=== PATIENT | female | born 1970 | race Caucasian/White ===

== ENCOUNTER 2018-02-10 11:41 | Emergency (ER) | payer BC ==
[~2018-02-10] VITALS: Ht 154.9 cm; Wt 98.0 kg
[2018-02-10] MEDS ORDERED: HYDRALAZINE HCL 20 MG/ML VIAL IV ONE (12:00)
[2018-02-10 12:58] LABS: HEMATOCRIT 46.8 % (34.2-44.1); HEMOGLOBIN 15.6 g/dL (12.0-16.0); MEAN CORPUSCULAR HEMOGLOBIN 27.8 pg (28-32); MEAN CORPUSCULAR HGB CONC 33.3 g/dL (31-35); MEAN CORPUSCULAR VOLUME 83.3 fL (81-99); PLATELET COUNT 227 x10e3/uL (140-360); RED BLOOD COUNT 5.62 x10e6/uL (3.6-5.1); RED CELL DISTRIBUTION WIDTH 13.2 % (11.7-14.4)
[2018-02-10 13:23] LABS: ALANINE AMINOTRANSFERASE 17 IU/L (0-55); ALBUMIN 4.2 g/dL (3.5-5.0); ALBUMIN/GLOBULIN RATIO 1.2 (0.8-2.0); ALKALINE PHOSPHATASE 61 IU/L (40-150); ANION GAP 14.6 mmol/L (8-16); BLOOD UREA NITROGEN 20 mg/dL (7-26); BUN/CREATININE RATIO 22 (6-25); CARBON DIOXIDE 26 mmol/L (22-29); CHLORIDE 100 mmol/L (98-107); CREATININE, SERUM 0.93 mg/dL (0.57-1.11); EST GLOMERULAR FILTRATION RATE > 60 ML/MIN (60-); GLUCOSE 82 mg/dL (74-118); POTASSIUM 3.6 mmol/L (3.5-5.1); SODIUM 137 mmol/L (136-145)
--- NOTE | 2018-02-10 13:48 | Diagnostic Imaging Report ---
EXAMINATION: CHEST SINGLE (PORTABLE) INDICATION: Hypertension COMPARISON: None FINDINGS: TUBES and LINES: None. LUNGS: Lungs are well inflated. Lungs are clear. There is no evidence of pneumonia or pulmonary edema. PLEURA: No pleural effusion or pneumothorax. HEART AND MEDIASTINUM: The cardiomediastinal silhouette is unremarkable. BONES AND SOFT TISSUES: No acute osseous lesion. Soft tissues are unremarkable. UPPER ABDOMEN: No free air under the diaphragm. IMPRESSION: No acute thoracic abnormality. Signed by: Dr. Torrey Flores M.D. on 02/10/2018 1:43 PM
[2018-02-10 14:33] LABS: BILIRUBIN,URINE NEGATIVE (NEGATIVE); CLARITY,URINE SL CLOUDY (CLEAR); COLOR,URINE YELLOW (YELLOW); KETONES,URINE NEGATIVE (NEGATIVE); LEUKOCYTE ESTERASE ,URINE TRACE (NEGATIVE); NITRITE,URINE NEGATIVE (NEGATIVE); PROTEIN,URINE DIPSTICK NEGATIVE (NEGATIVE); URINE UROBILINOGEN 0.2 mg/dL (0.2 - 1)
[2018-02-10 14:42] LABS: BACTERIA,URINE FEW /HPF; EPITHELIAL CELLS,URINE FEW /LPF; RBC,URINE 0-5 /HPF (0-5); WBC,URINE (MAN) 0-5 /HPF (0-5)
[2018-02-10] MEDS ORDERED: SODIUM CHLORIDE 0.9% 1000ML 1,000 ML IV STA (15:08)
[2018-02-10] MEDS ORDERED: SODIUM CHLORIDE 0.9% 1000ML 1,000 ML ONE (15:11)
--- NOTE | 2018-02-10 17:19 | Diagnostic Imaging Report ---
EXAMINATION: Renal Doppler ultrasound. CLINICAL HISTORY :Malignant hypertension, evaluate for renal artery stenosis. COMPARISON: <None available.> TECHNIQUE: Grayscale and color Doppler evaluation of the kidneys and bladder was performed in transverse and longitudinal planes. Doppler interrogation of the main, hilar, segmental and arcuate renal arteries bilaterally as well as evaluation of the aorta were performed. DISCUSSION: RIGHT KIDNEY: The right kidney measures 10.7 cm in length and shows normal echogenicity. The right renal cortex measures 1.2 cm. No hydronephrosis, shadowing calculi or solid mass lesions. . Right main renal artery PSV is 81.2, 98.7, 102.0 and 97.3 cm/sec at the ostium, proximal, mid and distal portions, respectively Right segmental artery PSV is 83.9, 64.2 and 42.7 cm/, at the superior, mid and inferior aspects, respectively. Arterial waveforms are normal. The right renal artery PSV/aortic PSV ratio is 0.9. LEFT KIDNEY: The left kidney measures 11.5 cm in length and shows normal echogenicity. The left renal cortex measures 1.6 cm. No hydronephrosis, shadowing calculi or solid mass lesions. Left main renal artery PSV is 99.0, 59.6, 81.2 and 45.3 cm/sec, at the ostium, proximal, mid and distal aspects, respectively. Left segmental artery PSV is 51.3, 41.3 and 41.4cm/sec, at the superior, mid and inferior aspects, respectively Arterial waveforms are normal. The left renal artery PSV/aortic PSV ratio is 0.8. Abdominal aortic PSV is 77.8, 118 and 77.4 cm/sec, at the proximal, celiac/SMA, and distal portions, respectively. BLADDER: No focal lesions. IMPRESSION: 1. Normal bilateral renal size and echogenicity. No hydronephrosis stones or solid lesions. 2. No sonographic evidence of renal artery stenosis. Signed by: Dr. Casey Goodson M.D. on 02/10/2018 5:16 PM
[2018-02-10] MEDS ORDERED: ACETAMINOPHEN 325 MG TAB ONE (17:33)
[2018-02-10 19:04] VITALS: BP 144/85
== END 2018-02-10 19:06 | disposition home or self-care (01) ==
LOC: ER 11:41
DX: I10 Essential (primary) hypertension (principal); N39.0 Urinary tract infection, site not specified
CPT/HCPCS: 36415; 71045; 80053; 81001; 84244; 85007; 85027; 93976; 99284; J0360; J7030

== ENCOUNTER → 2018-02-17 | Outpatient (CLI) | payer BC | LOC: CARD 08:51 | PROVIDERS: ATTEND Internal Medicine | DX: I10 Essential (primary) hypertension (principal) | CPT/HCPCS: 93306 ==

== ENCOUNTER → 2018-02-17 | Outpatient (CLI) | payer BC ==
[2018-02-17 09:09] LABS: THYROID STIMULATING HORMONE 1.976 uIU/mL (0.350-4.940)
== END ==
LOC: LAB 02-16 13:25
PROVIDERS: ATTEND Internal Medicine
DX: E07.9 Disorder of thyroid, unspecified (principal); E66.01 Morbid (severe) obesity due to excess calories; E78.00 Pure hypercholesterolemia, unspecified
CPT/HCPCS: 36415; 80061; 84443

== ENCOUNTER → 2018-07-21 | Outpatient (CLI) | payer BC ==
[~2018-07-21] MED LIST: REGADENOSON 0.4 MG/5 ML SYR IV ONE
== END ==
LOC: NM 06:45
DX: R94.31 Abnormal electrocardiogram [ECG] [EKG] (principal)
CPT/HCPCS: 78452; 93017; 93306; A9502; J2785

== ENCOUNTER → 2018-08-25 | Outpatient (CLI) | payer BC ==
[2018-08-25 07:10] LABS: COLOR,URINE YELLOW (YELLOW)
[2018-08-25 07:11] LABS: BILIRUBIN,URINE NEGATIVE (NEGATIVE); CLARITY,URINE HAZY (CLEAR); KETONES,URINE NEGATIVE (NEGATIVE); LEUKOCYTE ESTERASE ,URINE NEGATIVE (NEGATIVE); NITRITE,URINE NEGATIVE (NEGATIVE); PROTEIN,URINE DIPSTICK NEGATIVE (NEGATIVE); URINE UROBILINOGEN 0.2 mg/dL (0.2 - 1)
[2018-08-25 07:23] LABS: ALBUMIN 3.9 g/dL (3.5-5.0); ANION GAP 11.2 mmol/L (8-16); CALCIUM 10.3 mg/dL (8.4-10.2); CHOL/HDL RATIO 2.6 (3.0-3.6); CREATININE, SERUM 1.01 mg/dL (0.57-1.11); POTASSIUM 3.2 mmol/L (3.5-5.1)
[2018-08-25 07:46] LABS: FREE T4 (FREE THYROXINE) 0.89 ng/dL (0.9-1.8); THYROID STIMULATING HORMONE 2.455 uIU/mL (0.350-4.940)
[2018-08-25 09:17] LABS: BASOPHILS % 0.3 % (0.0-1.0); EOSINOPHILS # (AUTO) 0.1 (0.0-0.4); EOSINOPHILS % 1.4 % (0.0-6.0); HEMATOCRIT 43.7 % (34.2-44.1); HEMOGLOBIN 14.9 g/dL (12.0-16.0); LYMPHOCYTES # (AUTO) 2.8 (1.0-3.2); LYMPHOCYTES % 31.6 % (18.0-39.1); MEAN CORPUSCULAR HEMOGLOBIN 28.6 pg (28-32); MEAN CORPUSCULAR HGB CONC 34.1 g/dL (31-35); MEAN CORPUSCULAR VOLUME 83.9 fL (81-99); MONOCYTES # (AUTO) 0.8 (0.2-0.8); MONOCYTES % 8.8 % (4.4-11.3); NEUTROPHILS # (AUTO) 5.1 (2.1-6.9); NEUTROPHILS % 57.6 % (38.7-80.0); PLATELET COUNT 227 x10e3/uL (140-360); RED BLOOD COUNT 5.21 x10e6/uL (3.6-5.1); RED CELL DISTRIBUTION WIDTH 12.5 % (11.7-14.4)
== END ==
LOC: LAB 08-24 10:21
PROVIDERS: ATTEND Internal Medicine
DX: Z00.00 Encounter for general adult medical examination without abnormal findings (principal); Z13.1 Encounter for screening for diabetes mellitus; I10 Essential (primary) hypertension; E78.5 Hyperlipidemia, unspecified
CPT/HCPCS: 36415; 80053; 80061; 81003; 82652; 83036; 84439; 84443; 85025

== ENCOUNTER 2019-07-10 08:54 | Emergency (ER) | payer BC ==
[~2019-07-10] VITALS: Ht 154.9 cm; Wt 98.0 kg
--- OUTSIDE RECORDS SUMMARY | 2019-07-10 08:56 | XMS REPORT ---
Author Author [facility] Address Unknown Phone Unavailable Care Team Providers Care Head Banquet Waitress Name Role Phone Apolinar BESS Unavailable Unavailable Problems This patient has no known problems. Allergies, Adverse Reactions, Alerts This patient has no known allergies or adverse reactions. Medications This patient has no known medications. Results Test Description Test Time Test Comments Text Results Atomic Results Result Comments US RENAL/LIVER DOPPLER LTD 2018-02-10 17:08:00 [place] [address] Patient Name: ROGER LAW MR #: [id number] : 1970 Age/Sex: 47/F Req #: [id number] Adm Physician: Ordered by: VIANEY BESS MD Report #: [id number] Location: ER Room/Bed: Procedure: [id number] US/US RENAL/LIVER DOPPLER LTD Exam Date: Exam Time: REPORT STATUS: Signed EXAMINATION: Renal Doppler ultrasound. CLINICAL HISTORY :Malignant hypertension, evaluate for renal artery stenosis. COMPARISON: <None available.> TECHNIQUE: Grayscale and color Doppler evaluation of the kidneys and bladder was performed in transverse and longitudinal planes. Doppler interrogation of the main, hilar, segmental and arcuate renal arteries bilaterally as well as evaluation of the aorta were performed. DISCUSSION : RIGHT KIDNEY: The right kidney measures 10.7 cm in length and shows normal echogenicity. The right renal cortex measures 1.2 cm. No hydronephrosis, shadowing calculi or solid mass lesions. . Right main renal artery PSV is 81.2, 98.7, 102.0 and 97.3 cm/sec at the ostium, proximal, mid and distal portions, respectively Right segmental artery PSV is 83.9, 64.2 and 42.7 cm/, at the superior, mid and inferior aspects, respectively. Arterial waveforms are normal. The right renal artery PSV/aortic PSV ratio is 0.9. LEFT KIDNEY: The left kidney measures 11.5 cm in length and shows normal echogenicity. The left renal cortex measures 1.6 cm. No hydronephrosis, shadowing calculi or solid mass lesions. Left main renal artery PSV is 99.0, 59.6, 81.2 and 45.3 cm/sec, at the ostium, proximal, mid and distal aspects, respectively. Left segmental artery PSV is 51.3, 41.3 and 41.4cm/sec, at the superior, mid and inferior aspects, respectively Arterial waveforms are normal. The left renal artery PSV/aortic PSV ratio is 0.8. Abdominal aortic PSV is 77.8, 118 and 77.4 cm/sec, at the proximal, celiac/SMA, and distal portions, respectively. BLADDER: No focal lesions. IMPRESSION: 1. Normal bilateral renal size and echogenicity. No hydronephrosis stones or solid lesions. 2. No sonographic evidence of renal artery stenosis. Signed by: Dr. Jenni Goodson M.D. on 02/10/2018 5:16 PM Dictated By: JENNI GOODSON MD 15 Transcribed By: CAMELIA on 02/10/181715 COPY TO: VIANEY BESS MD CHEST SINGLE (PORTABLE) 2018-02-10 13:43:00 [place] [address] Patient Name: ROGER LAW MR #: [id number] : 1970 Age/Sex: 47/F Req #: [id number] Adm Physician: Ordered by: VIANEY BESS MD Report #: [id number] Location: Room/Bed: Procedure: [id number] DX/CHEST SINGLE (PORTABLE) Exam Date: 02/10/18 Exam Time: 1220 REPORT STATUS: Signed EXAMINATION: CHEST SINGLE (PORTABLE) BRUNO CATION: Hypertension COMPARISON: None FINDINGS: TUBES and LINES: None. LUNGS: Lungs are well inflated. Lungs are clear. There is no evidence of pneumonia or pulmonary edema. PLEURA: No pleural effusion or pneumothorax. HEART AND MEDIASTINUM: The cardiomediastinal silhouette is unremarkable. BONES AND SOFT TISSUES: No acute osseous lesion. Soft tissues are unremarkable. UPPER ABDOMEN: No free air under the diaphragm. IMPRESSION: No acute thoracic abnormality. Signed by: Dr. Torrey Flores M.D. on 02/10/2018 1:43 PM Dictated By: TORREY FLORES MD, MD [id number] Transcribed By: CAMELIA on 02/10/18 1343 COPY TO: VIANEY BESS MD
--- NOTE | 2019-07-10 09:06 | NUR ---
instilled 1 drop of tetracaine to affected eye per Dr. Kulkarni order.
[2019-07-10] MEDS ORDERED: TETRACAINE HCL 0.5% OPTH SOLN 4 ML BTL ONE (09:11)
[2019-07-10] MEDS ORDERED: TETRACAINE HCL 0.5% OPTH SOLN 4 ML BTL OP ONE (09:15)
== END 2019-07-10 09:17 | disposition home or self-care (01) ==
LOC: ER 08:54
DX: H57.12 Ocular pain, left eye (principal); H00.15 Chalazion left lower eyelid
CPT/HCPCS: 99282

== ENCOUNTER → 2019-08-26 | Outpatient (CLI) | payer BC ==
[2019-08-26 10:24] LABS: ANION GAP 13.6 mmol/L (8-16); BLOOD UREA NITROGEN 18 mg/dL (7-26); BUN/CREATININE RATIO 20 (6-25); CALCIUM 10.5 mg/dL (8.4-10.2); CARBON DIOXIDE 29 mmol/L (22-29); CHLORIDE 104 mmol/L (98-107); CREATININE, SERUM 0.88 mg/dL (0.57-1.11); EST GLOMERULAR FILTRATION RATE > 60 ML/MIN (60-); GLUCOSE 85 mg/dL (74-118); POTASSIUM 3.6 mmol/L (3.5-5.1); SODIUM 143 mmol/L (136-145)
== END ==
LOC: LAB 09:50
PROVIDERS: ATTEND Internal Medicine Cardiovascular Disease
DX: I10 Essential (primary) hypertension (principal)
CPT/HCPCS: 36415; 80048

== ENCOUNTER → 2019-11-08 | Outpatient (CLI) | payer BC ==
[2019-11-08 07:28] LABS: BASOPHILS % 0.4 % (0.0-1.0); EOSINOPHILS # (AUTO) 0.1 (0.0-0.4); EOSINOPHILS % 1.5 % (0.0-6.0); HEMATOCRIT 43.9 % (34.2-44.1); HEMOGLOBIN 14.1 g/dL (12.0-16.0); LYMPHOCYTES # (AUTO) 1.7 (1.0-3.2); LYMPHOCYTES % 32.7 % (18.0-39.1); MEAN CORPUSCULAR HEMOGLOBIN 27.6 pg (28-32); MEAN CORPUSCULAR HGB CONC 32.1 g/dL (31-35); MEAN CORPUSCULAR VOLUME 86.1 fL (81-99); MONOCYTES # (AUTO) 0.5 (0.2-0.8); MONOCYTES % 8.9 % (4.4-11.3); NEUTROPHILS # (AUTO) 2.9 (2.1-6.9); NEUTROPHILS % 56.3 % (38.7-80.0); PLATELET COUNT 195 x10e3/uL (140-360)
[2019-11-08 07:50] LABS: ALANINE AMINOTRANSFERASE 17 IU/L (0-55); ALBUMIN 3.8 g/dL (3.5-5.0); ALBUMIN/GLOBULIN RATIO 1.1 (0.8-2.0); ALKALINE PHOSPHATASE 54 IU/L (40-150); ANION GAP 15.2 mmol/L (8-16); BLOOD UREA NITROGEN 15 mg/dL (7-26); BUN/CREATININE RATIO 17 (6-25); CALCIUM 9.4 mg/dL (8.4-10.2); CARBON DIOXIDE 27 mmol/L (22-29); CHLORIDE 105 mmol/L (98-107); CHOL/HDL RATIO 2.6 (3.0-3.6); CHOLESTEROL 129 MD/DL (0-199); CREATININE, SERUM 0.86 mg/dL (0.57-1.11); EST GLOMERULAR FILTRATION RATE > 60 ML/MIN (60-); GLUCOSE 84 mg/dL (74-118); HDL CHOLESTEROL 50 MG/DL (40-60); LDL CHOLESTEROL 65 MG/DL (60-130); POTASSIUM 4.2 mmol/L (3.5-5.1); SODIUM 143 mmol/L (136-145); TRIGLYCERIDES 70 MG/DL (0-149)
[2019-11-08 07:59] LABS: BILIRUBIN,URINE NEGATIVE (NEGATIVE); CLARITY,URINE CLEAR (CLEAR); COLOR,URINE YELLOW (YELLOW); KETONES,URINE NEGATIVE (NEGATIVE); LEUKOCYTE ESTERASE ,URINE NEGATIVE (NEGATIVE); NITRITE,URINE NEGATIVE (NEGATIVE); PROTEIN,URINE DIPSTICK NEGATIVE (NEGATIVE); URINE UROBILINOGEN 0.2 mg/dL (0.2 - 1)
[2019-11-08 08:09] LABS: THYROID STIMULATING HORMONE 1.823 uIU/mL (0.350-4.940)
== END ==
LOC: LAB 06:59
PROVIDERS: ATTEND Internal Medicine
DX: Z00.00 Encounter for general adult medical examination without abnormal findings (principal); E78.5 Hyperlipidemia, unspecified; M89.9 Disorder of bone, unspecified; I10 Essential (primary) hypertension
CPT/HCPCS: 36415; 80053; 80061; 81003; 82044; 82306; 82570; 83036; 84443; 85025

== ENCOUNTER → 2020-01-03 | Outpatient (CLI) | payer BC ==
--- NOTE | 2020-01-03 09:19 | Diagnostic Imaging Report ---
EXAMINATION: FINGER LEFT INDICATION: Left finger pain COMPARISON: None FINDINGS: No acute fracture or dislocation. Alignment is anatomic. No substantial degenerative change. Soft tissues appear unremarkable. \ IMPRESSION: No acute osseous injury. Signed by: Da Dudley MD on 01/03/2020 9:15 AM
== END ==
LOC: RAD 08:15
PROVIDERS: ATTEND Internal Medicine
DX: M79.645 Pain in left finger(s) (principal)

== ENCOUNTER 2020-02-18 11:38 | Emergency (ER) | payer BC ==
[~2020-02-18] VITALS: Ht 154.9 cm; Wt 98.0 kg
== END 2020-02-18 12:18 | disposition home or self-care (01) ==
LOC: ER 11:50
DX: Z20.828 Contact with and (suspected) exposure to other viral communicable diseases (principal)
CPT/HCPCS: 99282; U0002

== ENCOUNTER → 2020-04-03 | Outpatient (CLI) | payer OTHER ==
[~2020-04-03] MED LIST changes: +COVID-19 VACC, MRNA(MODERNA)/PF 100 MCG/0.5 ML VIAL IM ONE; -REGADENOSON 0.4 MG/5 ML SYR IV ONE
== END ==
LOC: VACCPMC 10:50
DX: Z23 Encounter for immunization (principal); Z20.828 Contact with and (suspected) exposure to other viral communicable diseases

== ENCOUNTER → 2020-05-08 | Outpatient (CLI) | payer OTHER | LOC: VACCPMC 08:49 | DX: Z23 Encounter for immunization (principal); Z20.822 Contact with and (suspected) exposure to COVID-19 ==

== ENCOUNTER → 2020-11-30 | Outpatient (CLI) | payer OTHER | LOC: MAMMO 07:47 | PROVIDERS: ATTEND Internal Medicine | DX: N63.20 Unspecified lump in the left breast, unspecified quadrant (principal); N63.10 Unspecified lump in the right breast, unspecified quadrant | CPT/HCPCS: 77066 ==

== ENCOUNTER → 2020-12-14 | Outpatient (CLI) | payer OTHER | LOC: US 07:09 | PROVIDERS: ATTEND Internal Medicine | DX: N63.20 Unspecified lump in the left breast, unspecified quadrant (principal) | CPT/HCPCS: 88305 ==

== ENCOUNTER → 2020-12-30 | Outpatient (CLI) | payer OTHER ==
[2020-12-30 07:05] LABS: BASOPHILS % 0.3 % (0.0-1.0); EOSINOPHILS # (AUTO) 0.1 (0.0-0.4); HEMATOCRIT 43.1 % (34.2-44.1); LYMPHOCYTES % 27.7 % (18.0-39.1); MEAN CORPUSCULAR HEMOGLOBIN 28.5 pg (28-32); MEAN CORPUSCULAR HGB CONC 32.5 g/dL (31-35); MEAN CORPUSCULAR VOLUME 87.6 fL (81-99); MONOCYTES # (AUTO) 0.7 (0.2-0.8); MONOCYTES % 10.5 % (4.4-11.3); NEUTROPHILS # (AUTO) 4.3 (2.1-6.9); NEUTROPHILS % 60.2 % (38.7-80.0); PLATELET COUNT 245 x10e3/uL (140-360); RED BLOOD COUNT 4.92 x10e6/uL (3.6-5.1); RED CELL DISTRIBUTION WIDTH 13.1 % (11.7-14.4)
[2020-12-30 07:26] LABS: ALBUMIN 4.3 g/dL (3.5-5.0); ALBUMIN/GLOBULIN RATIO 1.2 (0.8-2.0); ANION GAP 11.4 mmol/L (8-16); CALCIUM 9.3 mg/dL (8.4-10.2); CREATININE, SERUM 0.82 mg/dL (0.57-1.11); POTASSIUM 3.4 mmol/L (3.5-5.1)
== END ==
LOC: LAB 12-29 15:06
PROVIDERS: ATTEND Internal Medicine Hematology & Oncology
DX: C50.219 Malignant neoplasm of upper-inner quadrant of unspecified female breast (principal); I10 Essential (primary) hypertension; E66.9 Obesity, unspecified
CPT/HCPCS: 36415; 80053; 85025

== ENCOUNTER → 2021-02-02 | Day surgery (SDC) | payer OTHER ==
[2021-01-31 13:30] LABS: BASOPHILS % 0.3 % (0.0-1.0); EOSINOPHILS # (AUTO) 0.1 (0.0-0.4); EOSINOPHILS % 0.8 % (0.0-6.0); HEMATOCRIT 42.1 % (34.2-44.1); HEMOGLOBIN 13.9 g/dL (12.0-16.0); LYMPHOCYTES % 26.7 % (18.0-39.1); MEAN CORPUSCULAR HEMOGLOBIN 28.3 pg (28-32); MEAN CORPUSCULAR VOLUME 85.6 fL (81-99); MONOCYTES # (AUTO) 0.6 (0.2-0.8); MONOCYTES % 7.6 % (4.4-11.3); NEUTROPHILS # (AUTO) 4.7 (2.1-6.9); NEUTROPHILS % 64.3 % (38.7-80.0); PLATELET COUNT 260 x10e3/uL (140-360); RED BLOOD COUNT 4.92 x10e6/uL (3.6-5.1); RED CELL DISTRIBUTION WIDTH 12.9 % (11.7-14.4)
[2021-01-31 13:54] LABS: ALBUMIN 4.3 g/dL (3.5-5.0); ALBUMIN/GLOBULIN RATIO 1.1 (0.8-2.0); ANION GAP 13.1 mmol/L (8-16); CALCIUM 9.3 mg/dL (8.4-10.2); CREATININE, SERUM 0.89 mg/dL (0.57-1.11); POTASSIUM 4.1 mmol/L (3.5-5.1)
[~2021-02-02] MED LIST changes: +ATORVASTATIN CA20 MG PO; -COVID-19 VACC, MRNA(MODERNA)/PF 100 MCG/0.5 ML VIAL IM ONE; +DEXAMETHASONE SOD PHOS INJ 4 MG/ML SDV ONE; +FENTANYL CITRATE/PF 100MCG/2 ML INJ ONE; +GLYCOPYRROLATE INJ 0.2 MG/ML VIAL ONE; +HYDROCODONE/APAP 7.5MG-325MG 1 EA TAB ONE; +KETOROLAC TROMETHAMINE 30 MG/ML VIAL ONE; +LIDOCAINE HCL 2% LOCAL INJ 5 ML SDV VIAL INJ ONE; +LOSARTAN-HCTZ1 EAC2 PO; +METOCLOPRAMIDE HCL 10 MG/2ML VIAL ONE; +MIDAZOLAM HCL 2 MG/2 ML VIAL ONE; +NEOSTIGMINE 1 MG/ML 10ML VIAL ONE; +NIFEDIPINE ER30 M1 PO; +ONDANSETRON HCL INJ 2MG/ML 2ML 2 MG/ML VIAL ONE; +POVIDONE IODINE 0.05% 0.05 % ML PO ONE; +PROPOFOL IV EMULSION 10 MG/ML 20 ML VIAL ONE; +ROCURONIUM BROMIDE 10 MG/ML 5ML VIAL IV ONE; +SEVOFLURANE INHAL SOLN 250 ML PEN BTL ONE
[2021-02-02 15:00] VITALS: BP 104/55
== END | disposition home or self-care (01) ==
LOC: OR 07:38
PROVIDERS: ATTEND Surgery
DX: D05.12 Intraductal carcinoma in situ of left breast (principal); Z17.1 Estrogen receptor negative status [ER-]; I10 Essential (primary) hypertension; E66.9 Obesity, unspecified; Z01.810 Encounter for preprocedural cardiovascular examination; Z01.812 Encounter for preprocedural laboratory examination; Z20.822 Contact with and (suspected) exposure to COVID-19
CPT/HCPCS: 19301; 36415; 38500; 78195; 80053; 85025; 88305; 88309; 93005; A9541; J1100; J1885; J2001; J2250; J2405; J2704; J2710; J2765; J3010; U0002

== ENCOUNTER → 2022-01-03 | Outpatient (CLI) | payer BC ==
[~2022-01-03] MED LIST changes: -DEXAMETHASONE SOD PHOS INJ 4 MG/ML SDV ONE; -FENTANYL CITRATE/PF 100MCG/2 ML INJ ONE; -GLYCOPYRROLATE INJ 0.2 MG/ML VIAL ONE; -HYDROCODONE/APAP 7.5MG-325MG 1 EA TAB ONE; -KETOROLAC TROMETHAMINE 30 MG/ML VIAL ONE; -LIDOCAINE HCL 2% LOCAL INJ 5 ML SDV VIAL INJ ONE; -METOCLOPRAMIDE HCL 10 MG/2ML VIAL ONE; -MIDAZOLAM HCL 2 MG/2 ML VIAL ONE; -NEOSTIGMINE 1 MG/ML 10ML VIAL ONE; -ONDANSETRON HCL INJ 2MG/ML 2ML 2 MG/ML VIAL ONE; -POVIDONE IODINE 0.05% 0.05 % ML PO ONE; -PROPOFOL IV EMULSION 10 MG/ML 20 ML VIAL ONE; -ROCURONIUM BROMIDE 10 MG/ML 5ML VIAL IV ONE; -SEVOFLURANE INHAL SOLN 250 ML PEN BTL ONE
== END ==
LOC: MAMMO 08:16
PROVIDERS: ATTEND Internal Medicine Hematology & Oncology
DX: Z85.3 Personal history of malignant neoplasm of breast (principal)
CPT/HCPCS: 77066

== ENCOUNTER → 2023-11-20 | Outpatient (REF) | payer BC ==
[~2023-11-20] MED LIST changes: +HYDROCHLOROTHIA25 MG PO; +LORATADINE10 MG PO; +LOSARTAN POTAS100 MG PO; +VITAMIN D250 MCG PO
== END ==
LOC: MAMMO 10:30
PROVIDERS: ATTEND Internal Medicine Hematology & Oncology
DX: C50.112 Malignant neoplasm of central portion of left female breast (principal)
CPT/HCPCS: 77066

== ENCOUNTER → 2024-02-11 | Outpatient (REF) | payer BC ==
[2024-02-11 06:53] LABS: BASOPHILS % 0.3 % (0.0-1.0); EOSINOPHILS # (AUTO) 0.1 (0.0-0.4); EOSINOPHILS % 2.6 % (0.0-6.0); HEMATOCRIT 41.5 % (34.2-44.1); HEMOGLOBIN 13.2 g/dL (12.0-16.0); LYMPHOCYTES % 25.3 % (18.0-39.1); MEAN CORPUSCULAR HEMOGLOBIN 28.7 pg (28-32); MEAN CORPUSCULAR HGB CONC 31.8 g/dL (31-35); MEAN CORPUSCULAR VOLUME 90.2 fL (81-99); MONOCYTES # (AUTO) 0.4 (0.2-0.8); MONOCYTES % 9.7 % (4.4-11.3); NEUTROPHILS # (AUTO) 2.4 (2.1-6.9); NEUTROPHILS % 62.1 % (38.7-80.0); PLATELET COUNT 173 x10e3/uL (140-360); RED CELL DISTRIBUTION WIDTH 12.7 % (11.7-14.4); WHITE BLOOD COUNT 3.91 x10e3/uL (4.8-10.8)
[2024-02-11 07:23] LABS: ALBUMIN 3.7 g/dL (3.5-5.0); ALBUMIN/GLOBULIN RATIO 1.2 (0.8-2.0); BILIRUBIN,TOTAL 0.5 mg/dL (0.2-1.2); CALCIUM 9.6 mg/dL (8.4-10.2); CHOL/HDL RATIO 2.9 (3.0-3.6); CREATININE, SERUM 0.96 mg/dL (0.57-1.11); TOTAL PROTEIN 6.9 g/dL (6.5-8.1)
[2024-02-11 07:42] LABS: THYROID STIMULATING HORMONE 1.646 uIU/mL (0.350-4.940)
[2024-02-17 10:35] LABS: HEPATITIS C ANTIBODY Non Reactive
== END ==
LOC: LAB 06:20
PROVIDERS: ATTEND Internal Medicine
DX: Z00.00 Encounter for general adult medical examination without abnormal findings (principal); Z13.1 Encounter for screening for diabetes mellitus; Z11.59 Encounter for screening for other viral diseases; Z72.89 Other problems related to lifestyle
CPT/HCPCS: 36415; 80053; 80061; 83036; 84443; 85025; 86803

== ENCOUNTER 2025-01-01 17:52 | Emergency (ER) | payer BC ==
[~2025-01-01] VITALS: Ht 154.9 cm; Wt 98.0 kg
[2025-01-01 18:14] VITALS: TEMP 97.8
[2025-01-01] MEDS ORDERED: HYDROXYZINE HCL25 MG PO (18:43)
[2025-01-01 18:53] VITALS: PULSE 87; RESP 18; O2SAT 99
[2025-01-01] MEDS ORDERED: DEXAMETHASONE4 MG PO (22:16)
== END 2025-01-01 18:56 | disposition home or self-care (01) ==
LOC: ER 18:08
DX: L29.9 Pruritus, unspecified (principal); Z86.79 Personal history of other diseases of the circulatory system
CPT/HCPCS: 99282

== ENCOUNTER 2025-01-01 21:20 | Emergency (ER) | payer BC ==
[~2025-01-01] VITALS: Ht 154.9 cm; Wt 98.0 kg
[~2025-01-01 21:20] MED LIST changes: +HYDROXYZINE HCL25 MG PO
[2025-01-01 21:50] VITALS: PULSE 72; RESP 20; TEMP 98.4; O2SAT 100
[2025-01-01] MEDS: DEXAMETHASONE 4 MG TAB PO STA (22:14)
[2025-01-01] MEDS ORDERED: DEXAMETHASONE4 MG PO (22:16)
== END 2025-01-01 22:20 | disposition home or self-care (01) ==
LOC: ER 21:27
DX: L50.9 Urticaria, unspecified (principal); I10 Essential (primary) hypertension; Z86.79 Personal history of other diseases of the circulatory system
CPT/HCPCS: 99283; J8540